=== PATIENT | male | born 1950 | race Two or more races ===

== ENCOUNTER → 2020-08-23 | Outpatient (CLI) | payer OTHER ==
[~2020-08-23] MED LIST: AMARYL4 MG PO; ASPIRIN81 MG PO; DIGITEK125 MCG PO; ENTRESTO 24 MG1 EACH PO; FERROCITE324 MG PO; FLOMAX0.4 MG PO; FORTAMET1000 MG PO; LANTUS INS100 UTS/M1 SQ; LASIX 40 MG TAB40 MG PO; LEVAQUIN750 MG PO; LIPITOR80 MG PO; MIRALAX17 GM PO; NEURONTIN600 MG PO; PLAVIX75 MG PO; PROSCAR5 MG PO; PROTONIX40 MG PO; TOPROL XL 25 MG25 MG PO; TYLENOL WITH C1 EACH PO; ZOLOFT50 MG PO; ZYLOPRIM 300 M300 MG PO
== END ==
LOC: HEART 5 12:14
DX: I25.5 Ischemic cardiomyopathy (principal); I08.3 Combined rheumatic disorders of mitral, aortic and tricuspid valves; Z95.0 Presence of cardiac pacemaker
CPT/HCPCS: 93306

== ENCOUNTER → 2021-10-14 | Outpatient (CLI) | payer OTHER | LOC: ECHO 10:18 | DX: I20.9 Angina pectoris, unspecified (principal); R07.9 Chest pain, unspecified; R06.02 Shortness of breath; I50.22 Chronic systolic (congestive) heart failure; I25.5 Ischemic cardiomyopathy; I08.3 Combined rheumatic disorders of mitral, aortic and tricuspid valves | CPT/HCPCS: ECHO; 93306 ==